=== PATIENT | female | born 1950 | race Caucasian/White ===

== ENCOUNTER → 2017-04-27 | Outpatient (CLI) | payer MEDICARE ==
--- NOTE | 2017-05-04 11:27 | RADIOLOGY REPORT PS360 ---
DIG MAMM-SCREEN [facility]QUES W/CAD CAD Screening ORDERING PHYSICIAN : Tru Ramos MD PATIENT AGE: 66 years GENDER: Female COMPARISON: Previous mammograms: April 2016, March INDICATION: Routine screening 66-year-old. No hormones. No new complaints. Noncontributory family history. TECHNIQUE: Standard CC and MLO images were obtained. R2 CAD reviewed. FINDINGS: Fairly dense breasts for age with moderately dense, heterogeneous dense tissue throughout both breast . Mild asymmetry RIGHT BREAST: No new areas of concern stable moderate dense right breast LEFT BREAST: Small grouping of more likely benign calcifications are again noted at the central left breast. However on today's MLO view they seem to be projected along the inferior margin of a just over 6 mm round density. This area is labeled A on MLO view; it was highlighted by CAD today as well.. This density may merely be a summation shadow on MLO view, as it does not seem to persist on the cc view. Nonetheless the patient would benefit additional magnification 90 degree & cc spot view of this area. If the nodular density persists ultrasound may be of benefit as well. IMPRESSION: 1. Left Breast: . We again see what appear to be most likely benign calcifications at Central left breast. However on today's MLO view these appear to be projected over the inferior aspect of a new round density Labeled A. This could be merely a summation shadow. However recommend patient return for magnification spot view 90 degree and cc view to further evaluate both features. If the nodular density should persist on the spot views ultrasound may be warranted 2. Right breast.: Stable appearance. Follow up one year on right 3. Moderately dense breast bilaterally somewhat decrease sensitivity mammography ... BI-RADS CATEGORY: 0_Incomplete: Need additional imaging RECOMMENDED FOLLOWUP: ADD ADDITIONAL IMAGING Magnification spot views left breast (A letter has been sent to the patient regarding results of the study.)
== END ==
LOC: RAD 04-24 10:30
DX: Z12.31 Encounter for screening mammogram for malignant neoplasm of breast (principal)
CPT/HCPCS: G0202

== ENCOUNTER → 2017-05-10 | Outpatient (CLI) | payer MEDICARE ==
--- NOTE | 2017-05-12 17:28 | RADIOLOGY REPORT PS360 ---
DIG MAMM-DX UNI A/VWS-LT W/CAD LEFT BREAST ULTRASOUND WITH AXILLA COMPARISON: 07/02 and 04/21/2016 INDICATION: Follow-up abnormal mammogram ORDERING PHYSICIAN: George Alexander MD PATIENT AGE: 66 years TECHNIQUE: Mag views obtained along with left breast ultrasound FINDINGS: Focal cluster of calcifications noted in the central aspect of the left breast. The calcifications do appear benign. There is some minimal nodularity at that region as noted on the screening exam. No malignant appearing abnormalities evident Left breast ultrasound: No suspicious nodules are evident. There is some mixed echogenicity at the 7:00 region which may be due to intramammary lymph node. IMPRESSION: Probably benign findings. BI-RADS CATEGORY: 3_Probably Benign-Short Term F/U RECOMMENDED FOLLOWUP: 6 month mammographic and sonographic follow-up. (A letter has been sent to the patient regarding results of the study.)
== END ==
LOC: RAD 13:28
DX: R92.8 Other abnormal and inconclusive findings on diagnostic imaging of breast (principal)
CPT/HCPCS: G0206-LT